=== PATIENT | female | born 1985 | race Caucasian/White ===

== ENCOUNTER 2016-12-07 13:27 | Observation (INO) ==
--- NOTE | 2016-12-07 15:10 | Emergency Department Note ---
Disposition Clinical Impression: Acute cholecystitis Disposition: Admitted As Inpatient Condition: Good Time of Disposition: 19:14 Abdominal Pain HPI - General Chief Complaint: ED Abdominal Pain Stated Complaint: gallbladder pain Time Seen by Provider: 12/07/16 15:04 Source: patient Mode of arrival: ambulatory Limitations: no limitations Nursing Notes Reviewed: Yes Vital Signs Reviewed: Yes - History of Present Illness HPI Narrative: 31-year-old female smoker presents with right upper quadrant pain. This all began 1900 last night. Describes a sharp stabbing sensation right upper quadrant. She has associated nausea vomiting. She was seen and evaluated at outside facility resave this was her gallbladder. Patient reports she was admitted to the hospital it was going to be transferred to [facility] for surgery. Prior to the transferred reportedly the surgeon was consulted and told the patient to follow up on Friday. Patient was subsequently sent home with a Vicodin antinausea medication. Patient has taken Vicodin without significant relief. She continues to be in pain. She denies any fever. She has a history of a section as well as a surgery to separate her ovaries. Patient denies any alcohol use. She is nauseated and has vomited 3 times today. She is only able to tolerate liquids at this time. She also reports burning with urination. She is currently on her menstrual period. Pt Subjective Complaint: abdominal pain Onset (ago): hour(s) Consistency: constant Location: RUQ Pain Severity: severe Pain Scale: 10 Quality: stabbing, sharp Radiation: none Migration to: no migration Improves with: nothing Worsens with: eating, movement Associated symptoms: Reports: nausea, vomiting, dysuria. Denies: hematemesis, hematochezia Treatments prior to arrival: prescription analgesics - Related Data LMP Date: 12/07/16 Home Medications Medication Instructions Recorded Confirmed Pregabalin [Lyrica] 300 mg PO BID 12/07/16 12/07/16 Allergies Allergy/AdvReac Type Severity Reaction Status Date / Time Sulfa (Sulfonamide Allergy Swelling Verified 04/24/15 23:06 Antibiotics) of Lip/Tongue/Throat Cyclobenzaprine AdvReac Shakiness Verified 04/24/15 23:06 [From Flexeril] tramadol [From Ultram] AdvReac Irritable Verified 04/24/15 23:06 All systems ED: reviewed and negative except as stated. Constitutional: Denies: fever, chills Cardiovascular: Denies: chest pain Respiratory: Denies: cough, dyspnea Gastrointestinal: Reports: abdominal pain, nausea, vomiting. Denies: diarrhea, melena, hematochezia Genitourinary: Reports: dysuria. Denies: urgency, frequency, hematuria, abnormal menses Musculoskeletal: Denies: back pain, neck pain Integumentary: Denies: rash, abrasion Neurological: Denies: headache Abdominal Pain PMH - Past Medical History Medical history: Reports: GERD Female Surgical History: Reports: non-contributory Psychiatric history: Reports: no psych history - Social History Smoking status: Current every day smoker Alcohol use: Reports: none Drug use: Reports: none Physical Exam - General Limitations: no limitations General appearance: alert, in no apparent distress Course Course Narrative: 31-year-old female presents with right upper quadrant pain. Ongoing for the past 24 hours. Reportedly has gallbladder inflammation and was discharge home yesterday. She has a follow-up appointment with a surgeon at [facility] on Friday. Patient presents with worsening pain. Patient is afebrile and otherwise appears uncomfortable. She was seen holding her right upper quadrant. But side ultrasound was performed but unable to visualize gallbladder due to patient compliance. Patient was very uncomfortable with a positive sonographic Ramos sign. Will get CBC, electrolytes, LFT. Also obtain right upper quadrant ultrasound to evaluate the pile system. Toradol and Zofran for symptoms. Patient is in agreement with this plan. - Reevaluation(s) Reevaluation #1: Mild leukocytosis 14. She has a large amount of blood in the urine consistent with menstrual period. Labs or otherwise unremarkable. Patient is resting comfortably in bed asleep. She appears in no acute distress. Ultrasound is pending. Time: 17:06 Reevaluation #2: Shari re-examination patients complaining of epigastric discomfort described as a burning sensation. She has a history of reflux. Ordered 20 mg of Pepcid. Patient is still awaiting ultrasound of the gallbladder. She is otherwise stable. Patient is signed out to Dr. Kaufman and Dr. Raymundo, nighttime physician for follow up with GB US and disposition. Time: 18:45 Vital Signs Temperature 98.1 F 12/07/16 13:46 Pulse Rate 97 12/07/16 13:46 Respiratory Rate 18 12/07/16 13:46 Blood Pressure 157/97 12/07/16 13:46 O2 Sat by Pulse Oximetry 98 12/07/16 13:46 Temperature 98.4 F 12/08/16 06:39 Pulse Rate 66 12/08/16 06:39 Respiratory Rate 18 12/08/16 06:39 Blood Pressure 129/81 12/08/16 06:39 O2 Sat by Pulse Oximetry 98 12/08/16 06:39 Oxygen Delivery Oxygen Delivery Room Air Abdominal Pain - Medical Records Medical records reviewed: Yes I reviewed the patient's medical records. - Lab Data Lab results reviewed: Yes I reviewed the patient's lab results. Result diagrams: 12/08/16 08:05 12/08/16 08:05 Lab Results 12/07/16 12/07/16 12/07/16 Range/Units 15:10 16:24 16:24 WBC 14.3 H (4.3-11.1) K/mcL RBC 4.29 (3.82-4.97) M/mcL Hgb 12.8 (11.5-15.4) g/dL Hct 38.9 (35.3-44.9) % MCV 90.7 (83.0-100.0) fL MCH 29.8 (28.0-33.3) pg MCHC 32.9 (31.6-35.5) g/dL RDW 12.5 (11.5-14.5) % Plt Count 256 (140-400) K/mcL MPV 11.0 (9.4-12.4) fL Immature Gran % 0.4 (0-4) % Seg Neutrophils % 77.8 % Lymphocytes % 15.2 % Monocytes % 5.8 % Eosinophils % 0.2 % Basophils % 0.6 % Neutrophils # 11.1 H (1.6-8.9) K/mcL Lymphocytes # 2.2 (0.6-4.6) K/mcL Monocytes # 0.8 (0.0-1.3) K/mcL Eosinophils # 0.0 (0.0-0.6) K/mcL Basophils # 0.1 (0.0-0.2) K/mcL Sodium 141 (136-145) mEq/L Potassium 4.5 (3.5-4.5) mEq/L Chloride 110 H (98-109) mEq/L Carbon Dioxide 23 (19-29) mEq/L BUN 11 (7-20) mg/dL Creatinine 0.73 (0.57-1.11) mg/dL Est GFR ( Amer) > 60 (> 60) Est GFR (Non-Af Amer) > 60 (> 60) BUN/Creatinine Ratio 15 (6-26) Glucose 124 H (70-99) mg/dL Calculated Osmolality 293 (280-300) Calcium 8.8 (8.6-10.8) mg/dL Total Bilirubin 0.5 (0.2-1.2) mg/dL Direct Bilirubin 0.2 (0.0-0.5) mg/dL Indirect Bilirubin 0.3 (0.0-1.2) mg/dL AST 28 (5-34) Units/L ALT 33 (0-55) Units/L Alkaline Phosphatase 95 (38-126) Units/L Serum Total Protein 6.1 (6.0-8.3) g/dL Albumin 3.4 L (3.5-5.0) g/dL Globulin 2.7 (2.4-3.5) g/dL Albumin/Globulin Ratio 1.3 (1.1-2.2) Lipase 36 (8-78) Units/L Serum , Qual (Negative) Urine Color Yellow (Yellow) Urine Clarity Clear (Clear) Urine pH 5.5 (5.0-8.0) pH Units Ur Specific [place] 1.025 (1.010-1.025) Urine Protein Negative (Neg-Trace) mg/dL Urine Glucose (UA) Normal (Normal) mg/dL Urine Ketones Negative (Negative) mg/dL Urine Blood Large H (Negative) Urine Nitrite Negative (Negative) Urine Bilirubin Negative (Negative) Urine Urobilinogen Normal (Normal) mg/dL Ur Leukocyte Esterase Small H (Negative) Urine Microscopic RBC 50-100 H (0-3) per hpf Urine Microscopic WBC 5-15 H (0-3) per hpf Ur Squamous Epith Cells Many H (None-Few) per lpf Urine Bacteria None Seen (None-Few) per hpf Hyaline Casts None Seen (None-Few) per lpf Ur Culture Indicated? YES A (NO) 12/07/16 Range/Units 16:24 WBC (4.3-11.1) K/mcL RBC (3.82-4.97) M/mcL Hgb (11.5-15.4) g/dL Hct (35.3-44.9) % MCV (83.0-100.0) fL MCH (28.0-33.3) pg MCHC (31.6-35.5) g/dL RDW (11.5-14.5) % Plt Count (140-400) K/mcL MPV (9.4-12.4) fL Immature Gran % (0-4) % Seg Neutrophils % % Lymphocytes % % Monocytes % % Eosinophils % % Basophils % % Neutrophils # (1.6-8.9) K/mcL Lymphocytes # (0.6-4.6) K/mcL Monocytes # (0.0-1.3) K/mcL Eosinophils # (0.0-0.6) K/mcL Basophils # (0.0-0.2) K/mcL Sodium (136-145) mEq/L Potassium (3.5-4.5) mEq/L Chloride (98-109) mEq/L Carbon Dioxide (19-29) mEq/L BUN (7-20) mg/dL Creatinine (0.57-1.11) mg/dL Est GFR ( Amer) (> 60) Est GFR (Non-Af Amer) (> 60) BUN/Creatinine Ratio (6-26) Glucose (70-99) mg/dL Calculated Osmolality (280-300) Calcium (8.6-10.8) mg/dL Total Bilirubin (0.2-1.2) mg/dL Direct Bilirubin (0.0-0.5) mg/dL Indirect Bilirubin (0.0-1.2) mg/dL AST (5-34) Units/L ALT (0-55) Units/L Alkaline Phosphatase (38-126) Units/L Serum Total Protein (6.0-8.3) g/dL Albumin (3.5-5.0) g/dL Globulin (2.4-3.5) g/dL Albumin/Globulin Ratio (1.1-2.2) Lipase (8-78) Units/L Serum , Qual Negative (Negative) Urine Color (Yellow) Urine Clarity (Clear) Urine pH (5.0-8.0) pH Units Ur Specific [place] (1.010-1.025) Urine Protein (Neg-Trace) mg/dL Urine Glucose (UA) (Normal) mg/dL Urine Ketones (Negative) mg/dL Urine Blood (Negative) Urine Nitrite (Negative) Urine Bilirubin (Negative) Urine Urobilinogen (Normal) mg/dL Ur Leukocyte Esterase (Negative) Urine Microscopic RBC (0-3) per hpf Urine Microscopic WBC (0-3) per hpf Ur Squamous Epith Cells (None-Few) per lpf Urine Bacteria (None-Few) per hpf Hyaline Casts (None-Few) per lpf Ur Culture Indicated? (NO) S.B.A.R. - S.B.A.R. Situation: Demographics, MOA Background: Presenting Complaint, Relevant PMH, Meds, & Allergies Assessment: Vital Signs, Course and respsone to treatment, Exam Concerns, Patient/Family Expectation, Pertinant Lab Results, Outstanding Labs Recommendation: Barrier(s) to disposition, Recommendation based on pending studies, treatments, or consults S.B.A.RBakari Report Given to: Dr. Kaufman and Zackary DodsonBViraj Repor Time: 19:00 Attestation Statement - Attestation Attestation: I personally interviewed and examined this patient and my medical decision- making was reviewed with the ED Resident Physician, Dr. Nugent I agree with the documented findings, disposition and treatment plan as described except to the extent set forth below. She is a 31-year-old white female who presents to the emergency room with recurrent right upper quadrant pain and nausea. Patient reports that she began with these symptoms 2 days ago and was evaluated last [facility]. Patient states that they wanted to admit her for gallbladder surgery then stated that she was later evaluated by the surgeon and told that she could be discharged home and did not need to come into the hospital. Patient has continued with right upper quadrant pain intermittently colicky in nature that radiates through to her back. Patient has not had any vomiting today but has had ongoing nausea. Patient's physical exam findings as documented. Currently patient's labs appear unremarkable overall in although urine shows some blood and leuks and patient is currently on her menses and this was a clean -catch urine. Patient has no urinary symptoms. At this time we are awaiting gallbladder ultrasound for further evaluation and final disposition. Patient was signed out to Dr. Raymundo in the national account executive team for follow-up on the [place] but her ultrasound results and final disposition. Patient is hemodynamically stable at time of sign out.
[2016-12-07] MEDS ORDERED: 0.9 % Sodium Chloride 1,000 ML IVC ONE (15:22)
[2016-12-07] MEDS ORDERED: Ondansetron 4 MG/2 ML VIAL IVP ONE ×2 (15:22→19:23)
[2016-12-07] MEDS ORDERED: Ketorolac 30 MG/ML VIAL IVP ONE (15:22)
[2016-12-07 15:44] LABS: Bilirubin,Urine Negative (Negative); Blood,Urine Large (Negative); Clarity,Urine Clear (Clear); Color,Urine Yellow (Yellow); Glucose,Urine (UA) Normal (Normal); Ketones,Urine Negative (Negative); Leukocyte Esterase,Urine Small (Negative); Nitrite,Urine Negative (Negative); PH,Urine 5.5 pH Units (5.0-8.0); Protein,Urine Negative (Neg-Trace); Specific Gravity,Urine 1.025 (1.010-1.025); Urobilinogen,Urine Normal (Normal)
[2016-12-07 15:46] LABS: Bacteria,Urine None Seen per hpf (None-Few); Hyaline Casts,Urine None Seen per lpf (None-Few); RBC,Urine 50-100 per hpf (0-3); Squamous Epithelial Cell,Urine Many per lpf (None-Few)
[2016-12-07 16:30] LABS: Basophils # 0.1 K/mcL (0.0-0.2); Basophils % 0.6 %; Eosinophils % 0.2 %; Hematocrit 38.9 % (35.3-44.9); Hemoglobin 12.8 g/dL (11.5-15.4); Immature Granulocytes % 0.4 % (0-4); Lymphocytes # 2.2 K/mcL (0.6-4.6); Lymphocytes % 15.2 %; Mean Corpuscular HGB Conc 32.9 g/dL (31.6-35.5); Mean Corpuscular Hemoglobin 29.8 pg (28.0-33.3); Mean Corpuscular Volume 90.7 fL (83.0-100.0); Monocytes # 0.8 K/mcL (0.0-1.3); Monocytes % 5.8 %; Neutrophils # 11.1 K/mcL (1.6-8.9); Platelet Count 256 K/mcL (140-400); Red Blood Count 4.29 M/mcL (3.82-4.97); Red Cell Distribution Width 12.5 % (11.5-14.5); Segmented Neutrophils % 77.8 %
[2016-12-07 16:47] LABS: Alanine Aminotransferase 33 Units/L (0-55); Albumin 3.4 g/dL (3.5-5.0); Albumin/Globulin Ratio 1.3 (1.1-2.2); Alkaline Phosphatase 95 Units/L (38-126); Aspartate Amino Transferase 28 Units/L (5-34); BUN/Creatinine Ratio 15 (6-26); Bilirubin,Direct 0.2 mg/dL (0.0-0.5); Bilirubin,Indirect 0.3 mg/dL (0.0-1.2); Bilirubin,Total 0.5 mg/dL (0.2-1.2); Blood Urea Nitrogen 11 mg/dL (7-20); Calcium 8.8 mg/dL (8.6-10.8); Carbon Dioxide 23 mEq/L (19-29); Chloride 110 mEq/L (98-109); Globulin 2.7 g/dL (2.4-3.5); Glucose 124 mg/dL (70-99); Lipase 36 Units/L (8-78); Osmolality,Calculated 293 (280-300); Potassium 4.5 mEq/L (3.5-4.5); Sodium 141 mEq/L (136-145); Total Protein 6.1 g/dL (6.0-8.3); eGFR For African Americans > 60 (> 60); eGFR For Non-African Americans > 60 (> 60)
[2016-12-07] MEDS: Famotidine 20 MG/2 ML VIAL IVP ONE ×2 (18:50→19:15)
[2016-12-07] MEDS ORDERED: *HR* HYDROmorphone (PF) 1 MG/ML SYRINGE IVP ONE ×2 (19:23→20:20)
--- NOTE | 2016-12-07 19:54 | Emergency Department Note ---
Disposition Clinical Impression: Acute cholecystitis Disposition: Admitted As Inpatient Condition: Good Abdominal Pain HPI - General Chief Complaint: ED Abdominal Pain Stated Complaint: gallbladder pain Time Seen by Provider: 12/07/16 15:04 Source: patient Mode of arrival: ambulatory Nursing Notes Reviewed: Yes Vital Signs Reviewed: Yes - History of Present Illness Pt Subjective Complaint: abdominal pain Location: RUQ Pain Severity: severe Pain Scale: 10 Quality: stabbing, sharp Migration to: no migration Improves with: nothing Worsens with: eating, movement Associated symptoms: Reports: nausea, vomiting, dysuria. Denies: hematemesis, hematochezia - Related Data Previous Rx's Medication Instructions Recorded Furosemide [Lasix] 20 mg PO DAILY #7 tablet 04/25/15 Allergies Allergy/AdvReac Type Severity Reaction Status Date / Time Sulfa (Sulfonamide Allergy Swelling Verified 04/24/15 23:06 Antibiotics) of Lip/Tongue/Throat Cyclobenzaprine AdvReac Shakiness Verified 04/24/15 23:06 [From Flexeril] tramadol [From Ultram] AdvReac Irritable Verified 04/24/15 23:06 Constitutional: Denies: fever, chills Cardiovascular: Denies: chest pain Respiratory: Denies: cough, dyspnea Gastrointestinal: Reports: abdominal pain, nausea, vomiting. Denies: diarrhea, melena, hematochezia Genitourinary: Reports: dysuria. Denies: urgency, frequency, hematuria, abnormal menses Musculoskeletal: Denies: back pain, neck pain Integumentary: Denies: rash, abrasion Neurological: Denies: headache Abdominal Pain PMH - Past Medical History Medical history: Reports: GERD Female Surgical History: Reports: non-contributory Psychiatric history: Reports: no psych history - Social History Smoking status: Current every day smoker Alcohol use: Reports: none Drug use: Reports: none Physical Exam - General Limitations: no limitations General appearance: alert, in no apparent distress Course Course Narrative: Patient taken over at signout from Dr. Nugent. Patient has a history of sudden onset abdominal pain happened yesterday. Said outside facility and given antibiotics and antiemetics. Worsening abdominal pain with her here for reevaluation which shows an ultrasound consistent with acute cholecystitis with pericholecystic fluid as well as positive sonographic Ramos sign. Gallbladder wall is thickened with concern for a gallstone within the bladder duct. Patient 's pain is controlled at this time. - Consultations Consultation #1: Discussed with Dr. Enriquez. Patient accepted for admission. 1954 Vital Signs Temperature 98.1 F 12/07/16 13:46 Pulse Rate 97 12/07/16 13:46 Respiratory Rate 18 12/07/16 13:46 Blood Pressure 157/97 12/07/16 13:46 O2 Sat by Pulse Oximetry 98 12/07/16 13:46 Temperature 98.1 F 12/07/16 13:46 Pulse Rate 47 12/07/16 19:35 Respiratory Rate 18 12/07/16 19:35 Blood Pressure 126/74 12/07/16 19:35 O2 Sat by Pulse Oximetry 98 12/07/16 19:35 Oxygen Delivery Oxygen Delivery Room Air Abdominal Pain - Lab Data Result diagrams: 12/07/16 16:24 12/07/16 16:24 Lab Results 12/07/16 12/07/16 12/07/16 Range/Units 15:10 16:24 16:24 WBC 14.3 H (4.3-11.1) K/mcL RBC 4.29 (3.82-4.97) M/mcL Hgb 12.8 (11.5-15.4) g/dL Hct 38.9 (35.3-44.9) % MCV 90.7 (83.0-100.0) fL MCH 29.8 (28.0-33.3) pg MCHC 32.9 (31.6-35.5) g/dL RDW 12.5 (11.5-14.5) % Plt Count 256 (140-400) K/mcL MPV 11.0 (9.4-12.4) fL Immature Gran % 0.4 (0-4) % Seg Neutrophils % 77.8 % Lymphocytes % 15.2 % Monocytes % 5.8 % Eosinophils % 0.2 % Basophils % 0.6 % Neutrophils # 11.1 H (1.6-8.9) K/mcL Lymphocytes # 2.2 (0.6-4.6) K/mcL Monocytes # 0.8 (0.0-1.3) K/mcL Eosinophils # 0.0 (0.0-0.6) K/mcL Basophils # 0.1 (0.0-0.2) K/mcL Sodium 141 (136-145) mEq/L Potassium 4.5 (3.5-4.5) mEq/L Chloride 110 H (98-109) mEq/L Carbon Dioxide 23 (19-29) mEq/L BUN 11 (7-20) mg/dL Creatinine 0.73 (0.57-1.11) mg/dL Est GFR ( Amer) > 60 (> 60) Est GFR (Non-Af Amer) > 60 (> 60) BUN/Creatinine Ratio 15 (6-26) Glucose 124 H (70-99) mg/dL Calculated Osmolality 293 (280-300) Calcium 8.8 (8.6-10.8) mg/dL Total Bilirubin 0.5 (0.2-1.2) mg/dL Direct Bilirubin 0.2 (0.0-0.5) mg/dL Indirect Bilirubin 0.3 (0.0-1.2) mg/dL AST 28 (5-34) Units/L ALT 33 (0-55) Units/L Alkaline Phosphatase 95 (38-126) Units/L Serum Total Protein 6.1 (6.0-8.3) g/dL Albumin 3.4 L (3.5-5.0) g/dL Globulin 2.7 (2.4-3.5) g/dL Albumin/Globulin Ratio 1.3 (1.1-2.2) Lipase 36 (8-78) Units/L Urine Color Yellow (Yellow) Urine Clarity Clear (Clear) Urine pH 5.5 (5.0-8.0) pH Units Ur Specific [place] 1.025 (1.010-1.025) Urine Protein Negative (Neg-Trace) mg/dL Urine Glucose (UA) Normal (Normal) mg/dL Urine Ketones Negative (Negative) mg/dL Urine Blood Large H (Negative) Urine Nitrite Negative (Negative) Urine Bilirubin Negative (Negative) Urine Urobilinogen Normal (Normal) mg/dL Ur Leukocyte Esterase Small H (Negative) Urine Microscopic RBC 50-100 H (0-3) per hpf Urine Microscopic WBC 5-15 H (0-3) per hpf Ur Squamous Epith Cells Many H (None-Few) per lpf Urine Bacteria None Seen (None-Few) per hpf Hyaline Casts None Seen (None-Few) per lpf Ur Culture Indicated? YES A (NO) Attestation Statement - Attestation Attestation: I, Derik Raymundo MD, personally evaluated this patient and discussed their management with the resident physician. I reviewed the resident's note and agree with the documented findings, medical decision making, and plan of care. This patient was signed out at shift change from Dr. Regine Hart and Dr. Nugent. Please refer to their notes for complete details of history and physical examination. At shift change patient awaiting gallbladder ultrasound results. On examination patient is a well-developed well-nourished female in no acute distress but does appear to be in moderate discomfort. She is alert and oriented 3. There is no cyanosis or diaphoresis. Breath sounds are clear and equal bilaterally. Heart is irregular with a mild bradycardia. Abdomen is soft with moderate right upper quadrant tenderness with guarding. No rebound tenderness. Normal bowel sounds. Labs reviewed. Leukocytosis noted. Gallbladder ultrasound consistent with acute cholecystitis. Surgeon professional soccer player, Dr. Enriquez, was consulted and accepted admission of the patient.
[2016-12-07] MEDS ORDERED: *HR* HYDROmorphone (PF) 1 MG/ML SYRINGE ONE (20:29)
[2016-12-07] MEDS ORDERED: Ondansetron 4 MG/2 ML VIAL IVP PRN (22:08)
[2016-12-07] MEDS ORDERED: *HR* Promethazine 25 MG/ML VIAL IVP PRN (22:09)
[2016-12-07] MEDS: *HR* HYDROmorphone (PF) 1 MG/ML SYRINGE IVP PRN (22:28)
[2016-12-07] MEDS: Piperacillin/Tazobactam 3.375 GM in D5% in Water (Mini-Bag+) 100 ML IVPB SCH (22:28)
[2016-12-07] MEDS: 0.9 % Sodium Chloride 1,000 ML IVC SCH (22:28)
[2016-12-08] MEDS: *HR* HYDROmorphone (PF) 1 MG/ML SYRINGE IVP PRN ×8 (00:49→21:42)
[2016-12-08] MEDS ORDERED: *HR* Metoprolol 5 MG/5 ML VIAL IVP PRN ×2 (07:33→13:23)
[2016-12-08] MEDS ORDERED: Naloxone 0.4 MG/ML INJ IVP PRN ×2 (07:33→13:23)
[2016-12-08] MEDS: Piperacillin/Tazobactam 3.375 GM in D5% in Water (Mini-Bag+) 100 ML IVPB SCH ×3 (08:17→22:28)
[2016-12-08] MEDS: 0.9 % Sodium Chloride 1,000 ML IVC SCH ×2 (08:17→16:22)
[2016-12-08 08:19] LABS: Basophils # 0.1 K/mcL (0.0-0.2); Basophils % 0.4 %; Eosinophils # 0.1 K/mcL (0.0-0.6); Eosinophils % 0.6 %; Hematocrit 38.4 % (35.3-44.9); Hemoglobin 12.8 g/dL (11.5-15.4); Immature Granulocytes % 0.4 % (0-4); Lymphocytes # 2.1 K/mcL (0.6-4.6); Lymphocytes % 16.1 %; Mean Corpuscular HGB Conc 33.3 g/dL (31.6-35.5); Mean Corpuscular Hemoglobin 30.3 pg (28.0-33.3); Mean Platelet Volume 11.3 fL (9.4-12.4); Monocytes % 7.6 %; Neutrophils # 9.9 K/mcL (1.6-8.9); Platelet Count 244 K/mcL (140-400); Red Blood Count 4.22 M/mcL (3.82-4.97); Red Cell Distribution Width 12.7 % (11.5-14.5); Segmented Neutrophils % 74.9 %
[2016-12-08 08:31] LABS: Alanine Aminotransferase 35 Units/L (0-55); Albumin 3.2 g/dL (3.5-5.0); Albumin/Globulin Ratio 1.1 (1.1-2.2); Alkaline Phosphatase 92 Units/L (38-126); Aspartate Amino Transferase 24 Units/L (5-34); BUN/Creatinine Ratio 14 (6-26); Bilirubin,Direct 0.3 mg/dL (0.0-0.5); Bilirubin,Indirect 0.3 mg/dL (0.0-1.2); Bilirubin,Total 0.6 mg/dL (0.2-1.2); Blood Urea Nitrogen 10 mg/dL (7-20); Calcium 8.7 mg/dL (8.6-10.8); Carbon Dioxide 24 mEq/L (19-29); Chloride 108 mEq/L (98-109); Globulin 2.8 g/dL (2.4-3.5); Glucose 130 mg/dL (70-99); Osmolality,Calculated 291 (280-300); Potassium 3.9 mEq/L (3.5-4.5); Sodium 140 mEq/L (136-145); eGFR For African Americans > 60 (> 60); eGFR For Non-African Americans > 60 (> 60)
[2016-12-08] MEDS ORDERED: Pantoprazole 40 MG VIAL IVP SCH (09:00)
[2016-12-08] MEDS ORDERED: *HR* Succinylcholine 200 MG/10 ML VIAL IVP ONE (09:16)
[2016-12-08] MEDS ORDERED: *HR* Rocuronium Bromide 50 MG/5 ML VIAL ONE (09:16)
[2016-12-08] MEDS ORDERED: *HR* Midazolam HCl 2 MG/2 ML VIAL ONE (09:16)
[2016-12-08] MEDS ORDERED: *HR* Propofol 200 MG/20 ML VIAL IVP ONE (09:16)
[2016-12-08] MEDS ORDERED: *HR* FentaNYL (PF) 100 MCG/2 ML VIAL ONE (09:16)
[2016-12-08] MEDS ORDERED: Lidocaine -MPF 2% 2 ML VIAL ONE (09:16)
--- NOTE | 2016-12-08 09:31 | General Surg History&Physical ---
Date of Encounter: 12/08/16 Time of Encounter: 07:30 Assessment and Plan (1) Leukocytosis Current Visit: Yes Status: Acute The assessment and plan as outlined above was discussed with the patient and/or family members who expressed understanding and agreement. All questions were answered. start cefoxitin q8hr Qualifiers: Leukocytosis type: unspecified Qualified Code(s): D72.829 - Elevated white blood cell count, unspecified (2) Nausea & vomiting Current Visit: Yes Status: Acute The assessment and plan as outlined above was discussed with the patient and/or family members who expressed understanding and agreement. All questions were answered. prn antiemetics Qualifiers: Vomiting type: unspecified Vomiting Intractability: non-intractable Qualified Code(s): R11.2 - Nausea with vomiting, unspecified (3) Acute cholecystitis Current Visit: Yes Status: Acute The assessment and plan as outlined above was discussed with the patient and/or family members who expressed understanding and agreement. All questions were answered. patient with acute cholecystitis. US and labs discussed wiht patient. Will plan laparoscopic cholecystectomy, possible cholangiograms possible open, risks and benefits discussed and she wishes to proceed. npo ivfh prn pain control abx prn antiemtic gi/dvt prophylaxis History of Present Illness Chief complaint: abdominal pain, N/V HPI: Ms. New is a 31 year old female who this past Friday night (2 nights ago) began having sharp RUQ pain which radiated to her back and shoulder. She had nausea and vomiting as well. She went to [facility] and had an US of her gallbladder and labs and was told it was her gallbladder and was discharged home with antibiotics. The pain continued to increase in severity and she presented to [place] ER last night. US of gallbladder was done showing stones, wall thickening and pericholecystic fluid. Wbc elevated at 14.3 and normal LFT' s. She denies diarrhea. No previous episodes like this. No fever chills and night sweats. Past Med Surg Social Fam HX - Past Medical History Source: patient Medical history: GERD, other (sciatica) Psychiatric history: no psych history - Past Surgical History Surgical History: (x3), other (laparoscopic lysis of adhesions) - Social History Smoking Status: Current every day smoker Packs per day: 1 Smokeless Tobacco Status: No Alcohol use: none Drug use: none Current living situation: Home - Independent - Family History Grandmother History Unknown: Yes Medications and Allergies Pregabalin [Lyrica] 300 mg PO BID 12/07/16 [History] Allergies Sulfa (Sulfonamide Antibiotics) Allergy (Verified 04/24/15 23:06) Swelling of Lip/Tongue/Throat Cyclobenzaprine [From Flexeril] Adverse Reaction (Verified 04/24/15 23:06) Shakiness tramadol [From Ultram] Adverse Reaction (Verified 04/24/15 23:06) Irritable Review of Systems All systems PM: reviewed and no additional remarkable complaints except as stated All systems PM: A 10-system review of systems was performed and is negative for pertinent findings except as documented above in the HPI. General Surgery Exam Initial Vital Signs Temp Pulse Resp BP Pulse Ox 98.1 F 97 18 157/97 98 12/07/16 13:46 12/07/16 13:46 12/07/16 13:46 12/07/16 13:46 12/07/16 13:46 - General physical appearance well nourished, no distress, no pain, moderate pain - Eyes PERRL, normal ocular movement - ENT normal mucosa, normocephalic - Neck trachea midline - Respiratory normal respiratory effort, clear to auscultation - Cardiovascular Cardiovascular exam: Present: RRR, no murmurs/rubs/gallops - Abdomen Abdomen general surgery: Present: bowel sounds present, soft, tender. Absent: distended, guarding, rebound, rigid Abdominal Tenderness: Present: RUQ - Integumentary Integumentary general surgery: Present: warm and dry, no abnormal pigmentation. Absent: diaphoresis - Neurologic Present: CN 2-12 grossly intact - Musculoskeletal Present: normal gait, normal posture - Psychiatric Psychiatric general surgery: Present: A&Ox3, speech is normal Results - Labs 12/08/16 08:05 12/08/16 08:05 Vital Signs Temp Pulse Resp BP Pulse Ox 12/08/16 06:39 98.4 F 66 18 129/81 98 12/08/16 03:10 98.3 F 57 13 136/87 98 12/07/16 21:20 97.9 F 47 14 150/99 99 12/07/16 19:35 47 18 126/74 98 12/07/16 17:35 84 18 131/70 96 06/24/17 13:46 98.1 F 97 18 157/97 98 Intake and Output 12/07/16 12/08/16 12/08/16 23:59 07:59 15:59 Intake Total 1000 / 1000 767 / 767 333 / 333 Output Total 300 / 300 Balance 1000 / 1000 467 / 467 333 / 333 Intake: IV Fluids 1000 / 1000 767 / 767 333 / 333 0.9 % Sodium Chloride 1, 1000 / 1000 667 / 667 333 / 333 000 ML @ 125 mls/hr IVC . Q8H GOYO Rx#:[id number] Zosyn 3.375 GM In 100 / 100 Dextrose 5% (Minibag+) 100 ML 100 ML @ 25 mls/hr IVPB Q8H GOYO Rx#: [id number] Oral 0 / 0 Output: Urine 300 / 300 Other: # Voids 1 Weight 87.317 kg 87.453 kg Blood Glucose* 124 127 Patient Weight 12/08/16 23:59 Weight 87.453 kg Short CBC 12/08/16 12/07/16 Range/Units 08:05 16:24 WBC 13.2 H 14.3 H (4.3-11.1) K/mcL Hgb 12.8 12.8 (11.5-15.4) g/dL Hct 38.4 38.9 (35.3-44.9) % Plt Count 244 256 (140-400) K/mcL Neutrophils # 9.9 H 11.1 H (1.6-8.9) K/mcL BMP 12/08/16 12/07/16 Range/Units 08:05 16:24 Sodium 140 141 (136-145) mEq/L Potassium 3.9 4.5 (3.5-4.5) mEq/L Chloride 108 110 H (98-109) mEq/L Carbon Dioxide 24 23 (19-29) mEq/L BUN 10 11 (7-20) mg/dL Creatinine 0.73 0.73 (0.57-1.11) mg/dL Glucose 130 H 124 H (70-99) mg/dL Calcium 8.7 8.8 (8.6-10.8) mg/dL Liver Function 12/08/16 12/07/16 Range/Units 08:05 16:24 Total Bilirubin 0.6 0.5 (0.2-1.2) mg/dL Direct Bilirubin 0.3 0.2 (0.0-0.5) mg/dL AST 24 28 (5-34) Units/L ALT 35 33 (0-55) Units/L Alkaline Phosphatase 92 95 (38-126) Units/L Albumin 3.2 L 3.4 L (3.5-5.0) g/dL Urine //17 Range/Units 15:10 Urine Color Yellow (Yellow) Urine Clarity Clear (Clear) Urine pH 5.5 (5.0-8.0) pH Units Ur Specific [place] 1.025 (1.010-1.025) Urine Protein Negative (Neg-Trace) mg/dL Urine Glucose (UA) Normal (Normal) mg/dL - Imaging US - abdomen: report reviewed
[2016-12-08] MEDS ORDERED: Albuterol 2.5 MG/3 ML NEBULIZER IH ONE (09:42)
[2016-12-08] MEDS ORDERED: Albuterol 2.5 MG/3 ML NEBULIZER ONE (09:44)
--- NOTE | 2016-12-08 09:52 | Anesthesia Evaluation PreOp ---
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 Any Significant HX Other Medical History: GERD Anesthesia History: No Prior Anesthetic Complications, Past Anesthesia Test: Negative (12/08/2016) Alcohol Use: none Drug use: none Medications and Allergies Pregabalin [Lyrica] 300 mg PO BID 12/07/16 [History] Allergies Sulfa (Sulfonamide Antibiotics) Allergy (Verified 04/24/15 23:06) Swelling of Lip/Tongue/Throat Cyclobenzaprine [From Flexeril] Adverse Reaction (Verified 04/24/15 23:06) Shakiness tramadol [From Ultram] Adverse Reaction (Verified 04/24/15 23:06) Irritable - Meds/Allergy Pre-op Review Medications Reviewed: Yes Allergies Reviewed: Yes Beta Blockers on Current Med List: No Anesthesia Results - Labs 12/08/16 08:05 12/08/16 08:05 Anesthesia Exam Vital Signs/O2 Sat, Most Current Temp Pulse Resp BP Pulse Ox 98.4 F 66 18 129/81 98 12/08/16 06:39 12/08/16 06:39 12/08/16 06:39 12/08/16 06:39 12/08/16 06:39 Height: 5'5''/1.65 m Weight: 192 lbs/87.453 kg NPO (# of Hours): 8 Pain Scale: 6 (abdomen) Pain Scale Used: Numeric (1 - 10) - HEENT Pupil (Motor): EOMI Mallampati: II Teeth: Normal (chipped lower teeth) Oral Opening: Greater than 3 - PRODUCT SAFETY TEST ENGINEER LOC: Oriented PRODUCT SAFETY TEST ENGINEER Motor: Normal RUE, Normal LUE, Normal RLE, Normal LLE, Normal Face PRODUCT SAFETY TEST ENGINEER Sensory: Normal: RUE, LUE, RLE, LLE, Face - Cardiac Rhythm: Regular Murmur: None - Pulmonary Breath Sounds: bilateral Clear Respiratory Effort: Symmetrical Anesthesia Assess/Plan ASA Score: 2 Modified Claudio Scale for Level of Consciousness: Cooperative, oriented, and tranquil Anesthetic Plan: General Monitoring Plan: Standard Monitors Recovery Plan: PACU
[2016-12-08] MEDS ORDERED: *HR* Promethazine 25 MG/ML VIAL IVP PRN ×2 (09:59→13:23)
[2016-12-08] MEDS ORDERED: Ondansetron 4 MG/2 ML VIAL IVP ONE (09:59)
[2016-12-08] MEDS ORDERED: Neostigmine Methylsulfate 3 MG/3 ML SYRINGE ONE (10:39)
[2016-12-08] MEDS ORDERED: Ondansetron 4 MG/2 ML VIAL ONE (10:39)
[2016-12-08] MEDS ORDERED: Dexamethasone 4 MG/ML VIAL ONE (10:39)
[2016-12-08] MEDS ORDERED: *HR* HYDROmorphone 2 MG/ML SYRINGE ONE (10:45)
--- NOTE | 2016-12-08 11:58 | Operative Note ---
Date of procedure: 12/08/16 Pre-op diagnosis: Symptomatic cholelithiasis Post-op diagnosis: other (Acute cholecystitis) Procedure: Laparoscopic cholecystectomy Complications: none immediate Anesthesia: GETA, local Local Anesthetics: 0.5% Sensorcaine HCL SubQ (cc) (30) Surgeon: Lin Enriquez Aws Developer: Jessica Gu Estimated blood loss (cc): 30 Specimen: gallbladder and contents Condition: stable Disposition: PACU Procedure in Detail: The patient was brought into the operating suite and placed supine on the operating table. Sign-in was performed and everyone was in agreement. Anesthesia was induced and patient was endotracheally intubated by anesthesia without incident and they also placed an OG tube. The abdomen was prepped and draped in the usual sterile fashion. A timeout was performed again everyone was in agreement. A supraumbilical incision was made through the skin into the subcutaneous tissue with an 11 blade. Towel clamps were placed on either side of the umbilicus for retraction. S retractors were used to dissect down to the anterior abdominal wall linea alba fascia. A Veress needle was placed through this incision and a water drop test confirmed placement and the abdomen was insufflated. The abdomen was entered with a 5 mm 0 degree laparoscope on a 5 mm X-lesley trocar. The area and entry was visualized was no bleeding and no apparent bowel injury. A 5 mm subxiphoid port was placed under direct visualization after first incising the skin with an 11 blade. A right upper quadrant subcostal position midclavicular line 5 mm port was placed under direct visualization after first incising skin with 11 blade. The laparoscope was placed in this and we exchanged the supraumbilical port for a 12 mm port under direct visualization. The last 5 mm port was placed in the right upper quadrant subcostal position anterior axillary line after first incising the skin with an 11 blade. The patient was placed in steep reverse Trendelenburg left side down position. The gallbladder was significantly firm and we aspirated about 30 mL of bile with the laparoscopic aspirator to be able to grab the gallbladder. The dome of the gallbladder was grasped and retracted cephalad. Omental adhesions to the body and infundibulum of the gallbladder were taken down bluntly with the [place] and suction. The infundibulum was grasped and retracted laterally which was very difficult to grab due to the thickness of the tissue. Using the [place] we dissected out the cystic duct and cystic artery. Three 5 mm hemoclips were placed distally on the cystic duct one proximally and it was transected with curved scissors. The cystic artery was doubly clipped proximally, once distally and transected with curved scissors. The gallbladder was removed off the cystic plate with the Bovie. This took a significant amount of time due to the thickness of the tissue and the inflammation present. Any bleeding points were stopped with the Bovie. There was some bleeding at the liver bed which was stopped with the Bovie and using Surgicel, large sheet. The gallbladder was placed in a laparoscopic Endo Catch bag and removed via the supraumbilical incision site which had to be opened several centimeters in length to be able to remove the gallbladder. The inferior edge of the liver was bluntly retracted cephalad and the cystic plate was copiously irrigated with sterile saline. There was no bleeding or apparent bile leak from the cystic plate and the clips on the cystic artery and duct were intact. All irrigation was suctioned free from the abdomen and the Surgicel was removed. All insufflation was suctioned free from the abdomen and the ports removed. The abdominal wall at the supraumbilical incision site was closed with 2 #1 non-looped PDS stitches running meeting in the middle. 30 mL of 0.5% Marcaine was injected subcutaneously at the 4 port sites. The skin at the three 5 mm port sites were closed with 4-0 Monocryl interrupted subcuticular stitches. The skin at the supraumbilical incision site was closed with a 4-0 Monocryl running subcuticular stitch. Steri-Strips were applied to all wounds. The patient was awoken in the operating suite having tolerated the procedure well and were taken to PACU in stable condition after all lap and ensuring counts were correct at the end of the case.
--- NOTE | 2016-12-08 12:03 | Discharge Summary ---
Date of Encounter: 12/09/16 Time of Encounter: 13:00 - Discharge Diagnosis (1) Leukocytosis Priority: Secondary Status: Acute Qualifiers: Leukocytosis type: unspecified Qualified Code(s): D72.829 - Elevated white blood cell count, unspecified (2) Nausea & vomiting Priority: Secondary Status: Acute Qualifiers: Vomiting type: unspecified Vomiting Intractability: non-intractable Qualified Code(s): R11.2 - Nausea with vomiting, unspecified (3) Acute cholecystitis Priority: Primary Status: Acute - Discharge Medications Home Medications: Pregabalin [Lyrica] 300 mg PO BID 12/07/16 [History] Ciprofloxacin HCl [Cipro] 500 mg PO BID 12/08/16 [History] Ibuprofen [Motrin] 800 mg PO Q8HR PRN 12/08/16 [History] Ondansetron ODT [Zofran ODT] 4 mg PO Q4H PRN 12/08/16 [History] Suboxone 8mg-2mg Tab 1 tab PO BID 12/08/16 [History] metroNIDAZOLE [Flagyl] 500 mg PO BID 12/08/16 [History] Allergies/Adverse Reactions: Allergies Sulfa (Sulfonamide Antibiotics) Allergy (Verified 04/24/15 23:06) Swelling of Lip/Tongue/Throat Cyclobenzaprine [From Flexeril] Adverse Reaction (Verified 04/24/15 23:06) Shakiness tramadol [From Ultram] Adverse Reaction (Verified 04/24/15 23:06) Irritable General Surgery Exam Initial Vital Signs Temp Pulse Resp BP Pulse Ox 98.1 F 97 18 157/97 98 12/07/16 13:46 12/07/16 13:46 12/07/16 13:46 12/07/16 13:46 12/07/16 13:46 - General physical appearance well nourished, no distress, moderate pain - Eyes PERRL, normal ocular movement - ENT normal mucosa, normocephalic - Respiratory normal expansion, clear to auscultation - Cardiovascular Cardiovascular exam: Present: RRR - Abdomen Abdomen general surgery: Present: bowel sounds present, soft, tender ( appropriate post op tenderness) - Incision Incision: Present: clean and dry, intact - Integumentary Integumentary general surgery: Present: warm and dry, no abnormal pigmentation. Absent: diaphoresis - Neurologic Present: CN 2-12 grossly intact - Musculoskeletal Present: normal gait, normal posture - Psychiatric Psychiatric general surgery: Present: A&Ox3, speech is normal Date of admission: 12/07/16 20:05 Primary care physician: Bhavani Sneed Consults: 12/07/16 22:44 Consult to Nutrition [CONS] Routine Comment: patient lost 30 lbs Consulting Provider: NUTRITION Reason for Dietary Consult: MST Score Discharging clinician: Lin Enriquez Anticipated date of discharge: 12/09/16 - Patient Status Disposition: Home, Self-Care Condition: Good Overall status at discharge: patient is progressing back to baseline - Discharge Instructions Instructions: Laparoscopic Cholecystectomy (DC) Follow Up With: Bhavani Sneed [Primary Care Provider] - Lin Enriquez MD [Partnered Physician] - (or Jennifer Maddox in 2 weeks for post op check) Additional Instructions: No lifting more than 20 pounds for 6 weeks. Okay to take a shower in 24 hours. No tub baths or pools for 1 week. Okay to ride in the car wearing a seatbelt and climb steps. No driving until off narcotics for 24 hours and able to react safely Remove Steri-Strips in 1 week Do not take pain medicine/narcotics on an empty stomach it will likely cause nausea and possibly vomiting. If pain medication is too strong okay to break in half - Diet and Activity Activity: increase activity as tolerated (No lifting more than 20 pounds for 2 weeks) Diet: low fat, low cholesterol - Hospital Course Hospital course: Ms. New is a 31 year old female who came into the ER with right upper quadrant abdominal pain, nausea, vomiting. Ultrasound of the gallbladder showed 1.4 cm gallbladder wall thickening, pericholecystic fluid, and cholelithiasis, white blood cell count was elevated, LFTs were normal. She was admitted to the hospital, made nothing by mouth, IV fluid hydration was started. She was started on Zosyn antibiotics. She was taken to the operating room on December 08 for a laparoscopic cholecystectomy. Postoperatively she was started on IV when necessary pain control and transitioned to by mouth P [place] was started on a clear liquid diet and advance to regular she tolerated. She was discharged home in stable condition, tolerating a diet, having appropriate bowel and bladder function. - Time Spent with Patient Total time spent providing and/or coordinating discharge services: Labs on day of discharge: Labs from last 24 hours 12/08/16 12/08/16 08:05 08:05 WBC 13.2 H RBC 4.22 Hgb 12.8 Hct 38.4 MCV 91.0 MCH 30.3 MCHC 33.3 RDW 12.7 Plt Count 244 MPV 11.3 Immature Gran % 0.4 Seg Neutrophils % 74.9 Lymphocytes % 16.1 Monocytes % 7.6 Eosinophils % 0.6 Basophils % 0.4 Neutrophils # 9.9 H Lymphocytes # 2.1 Monocytes # 1.0 Eosinophils # 0.1 Basophils # 0.1 Sodium 140 Potassium 3.9 Chloride 108 Carbon Dioxide 24 BUN 10 Creatinine 0.73 Est GFR ( Amer) > 60 Est GFR (Non-Af Amer) > 60 BUN/Creatinine Ratio 14 Glucose 130 H Calculated Osmolality 291 Calcium 8.7 Total Bilirubin 0.6 Direct Bilirubin 0.3 Indirect Bilirubin 0.3 AST 24 ALT 35 Alkaline Phosphatase 92 Serum Total Protein 6.0 Albumin 3.2 L Globulin 2.8 Albumin/Globulin Ratio 1.1
[2016-12-08] MEDS ORDERED: Ondansetron 4 MG/2 ML VIAL IVP PRN (13:23)
--- NOTE | 2016-12-08 13:32 | Anesthesia Evaluation Post Op ---
Date of Encounter: 12/08/16 Time of Encounter: 13:00 - Vital Signs Vital Signs: Vital Signs/O2 Sat, Most Current Temp Pulse Resp BP Pulse Ox 99.7 F H 49 16 141/86 97 12/08/16 12:51 12/08/16 12:51 12/08/16 12:51 12/08/16 12:51 12/08/16 12:51 - Lungs Lungs: Clear Ascult./Percussion - Airway Airway: Non-obstructed - Cardiovascular Regular Rate - Mental Status Mental Status: Asleep with brisk response to light stimulation - Pain Pain Scale: 4 Pain Scale used: Numeric (1 - 10) - Nausea Vomiting Nausea Vomiting: Not Present - Hydration Hydration: NPO, Has not voided - Discharge PostOp Status: Transfer Patient to floor
[2016-12-08] MEDS: *HR* OxyCODONE/APAP 5/325 TABLET PO PRN ×2 (16:08→22:28)
[2016-12-08] MEDS: Pregabalin 75 MG CAPSULE PO SCH (19:22)
[2016-12-09] MEDS: *HR* HYDROmorphone (PF) 1 MG/ML SYRINGE IVP PRN ×3 (02:51→13:06)
[2016-12-09] MEDS: 0.9 % Sodium Chloride 1,000 ML IVC SCH (03:59)
[2016-12-09] MEDS: *HR* OxyCODONE/APAP 5/325 TABLET PO PRN ×2 (05:26→11:03)
[2016-12-09 05:40] LABS: Basophils # 0.1 K/mcL (0.0-0.2); Basophils % 0.7 %; Eosinophils # 0.2 K/mcL (0.0-0.6); Eosinophils % 1.5 %; Hematocrit 34.2 % (35.3-44.9); Hemoglobin 11.4 g/dL (11.5-15.4); Immature Granulocytes % 0.3 % (0-4); Lymphocytes # 3.8 K/mcL (0.6-4.6); Mean Corpuscular HGB Conc 33.3 g/dL (31.6-35.5); Mean Corpuscular Hemoglobin 30.7 pg (28.0-33.3); Mean Corpuscular Volume 92.2 fL (83.0-100.0); Mean Platelet Volume 12.1 fL (9.4-12.4); Monocytes % 8.9 %; Neutrophils # 5.6 K/mcL (1.6-8.9); Platelet Count 199 K/mcL (140-400); Red Blood Count 3.71 M/mcL (3.82-4.97); Red Cell Distribution Width 12.8 % (11.5-14.5); Segmented Neutrophils % 52.6 %
[2016-12-09 05:50] LABS: Alanine Aminotransferase 54 Units/L (0-55); Albumin 2.8 g/dL (3.5-5.0); Alkaline Phosphatase 80 Units/L (38-126); Aspartate Amino Transferase 43 Units/L (5-34); BUN/Creatinine Ratio 10 (6-26); Bilirubin,Direct 0.2 mg/dL (0.0-0.5); Bilirubin,Indirect 0.2 mg/dL (0.0-1.2); Bilirubin,Total 0.4 mg/dL (0.2-1.2); Blood Urea Nitrogen 7 mg/dL (7-20); Calcium 8.5 mg/dL (8.6-10.8); Carbon Dioxide 26 mEq/L (19-29); Chloride 108 mEq/L (98-109); Globulin 2.8 g/dL (2.4-3.5); Glucose 101 mg/dL (70-99); Osmolality,Calculated 288 (280-300); Potassium 3.4 mEq/L (3.5-4.5); Sodium 140 mEq/L (136-145); Total Protein 5.6 g/dL (6.0-8.3); eGFR For African Americans > 60 (> 60); eGFR For Non-African Americans > 60 (> 60)
[2016-12-09] MEDS: Pregabalin 75 MG CAPSULE PO SCH (08:34)
[2016-12-09] MEDS ORDERED: Pantoprazole 40 MG VIAL IVP SCH (09:00)
--- NOTE | 2016-12-09 14:38 | Discharge Summary ---
Date of Encounter: 12/09/16 Time of Encounter: 14:34 - Discharge Diagnosis (1) Acute cholecystitis Priority: Primary Status: Resolved (2) Leukocytosis Priority: Secondary Status: Resolved Qualifiers: Leukocytosis type: unspecified Qualified Code(s): D72.829 - Elevated white blood cell count, unspecified (3) Nausea & vomiting Priority: Secondary Status: Resolved Qualifiers: Vomiting type: unspecified Vomiting Intractability: non-intractable Qualified Code(s): R11.2 - Nausea with vomiting, unspecified - Discharge Medications Prescriptions: OxyCODONE/APAP 5/325 [Percocet 5/325 MG] 1 each PO Q4HR PRN #30 tablet PRN Reason: Pain Ibuprofen [Motrin] 800 mg PO Q8HR #50 tablet Docusate [Colace] 100 mg PO BID #30 capsule Home Medications: Pregabalin [Lyrica] 300 mg PO BID 12/07/16 [History] Ondansetron ODT [Zofran ODT] 4 mg PO Q4H PRN 12/08/16 [History] Docusate [Colace] 100 mg PO BID #30 capsule 12/09/16 [Rx] Ibuprofen [Motrin] 800 mg PO Q8HR #50 tablet 12/09/16 [Rx] OxyCODONE/APAP 5/325 [Percocet 5/325 MG] 1 each PO Q4HR PRN #30 tablet 12/09/16 [Rx] Suboxone 8mg-2mg Tab 1 tab PO BID #0 12/09/16 [Rx] Allergies/Adverse Reactions: Allergies Sulfa (Sulfonamide Antibiotics) Allergy (Verified 04/24/15 23:06) Swelling of Lip/Tongue/Throat Cyclobenzaprine [From Flexeril] Adverse Reaction (Verified 04/24/15 23:06) Shakiness tramadol [From Ultram] Adverse Reaction (Verified 04/24/15 23:06) Irritable General Surgery Exam Initial Vital Signs Temp Pulse Resp BP Pulse Ox 98.1 F 97 18 157/97 98 12/07/16 13:46 12/07/16 13:46 12/07/16 13:46 12/07/16 13:46 12/07/16 13:46 - General physical appearance well developed, well nourished, no distress - Eyes normal ocular movement - ENT normal mucosa, atraumatic, normocephalic - Neck trachea midline - Respiratory normal respiratory effort - Cardiovascular Cardiovascular exam: Present: RRR - Abdomen Abdomen general surgery: Present: bowel sounds present, soft, tender (expected post-operative tenderness) - Incision Incision: Present: clean and dry, intact - Integumentary Integumentary general surgery: Present: warm and dry - Neurologic Present: CN 2-12 grossly intact - Psychiatric Psychiatric general surgery: Present: appropriate, oriented to person, oriented to place, oriented to time, speech is normal, memory intact Date of admission: 12/07/16 20:05 Primary care physician: Bhavani Sneed Discharging clinician: Lin Enriquez (Precious Maddox) Anticipated date of discharge: 12/09/16 - Patient Status Disposition: Home, Self-Care Condition: Good - Discharge Instructions Instructions: Laparoscopic Cholecystectomy (DC) Follow Up With: Bhavani Sneed [Primary Care Provider] - Lin Enriquez MD [Partnered Physician] - (or Jennifer Maddox in 2 weeks for post op check) Phoebe Maddox CNP [Advanced Practice Nurse] - 12/23/16 9:00 am (surgery follow-up) Forms: Work/School Release Additional Instructions: No lifting more than 20 pounds for 6 weeks. Okay to take a shower in 12/09/16 No tub baths or pools for 1 week. Okay to ride in the car wearing a seatbelt and climb steps. No driving until off narcotics for 24 hours and able to react safely Remove Steri-Strips in 1 week Do not take pain medicine/narcotics on an empty stomach it will likely cause nausea and possibly vomiting. If pain medication is too strong okay to break in half - Diet and Activity Activity: other (See additional instructions above) Diet: advance to your usual diet - Hospital Course Hospital course: Ms. New is a 31 year old female presented to the hospital with complaints of abdominal pain with associated nausea and vomiting. She was found to have symptomatic cholelithiasis as well as acute cholecystitis. She was started on IV antibiotics and taken to the operating room for a laparoscopic cholecystectomy. She is POD #1 from cholecystectomy and she states that she feels much better. She is tolerating a diet without nausea or vomiting. Her vital signs are stable and she is afebrile. She is voiding and ambulating without difficulty. Her WBC count has returned to normal. We will begin discharge planning and plan for outpatient follow-up in the next 10-14 days. - Time Spent with Patient Total time spent providing and/or coordinating discharge services: Less than 30 minutes Labs on day of discharge: Labs from last 24 hours 12/09/16 12/09/16 12/08/16 04:41 04:41 06:01 WBC 10.6 RBC 3.71 L Hgb 11.4 L Hct 34.2 L MCV 92.2 MCH 30.7 MCHC 33.3 RDW 12.8 Plt Count 199 MPV 12.1 Immature Gran % 0.3 Seg Neutrophils % 52.6 Lymphocytes % 36.0 Monocytes % 8.9 Eosinophils % 1.5 Basophils % 0.7 Neutrophils # 5.6 Lymphocytes # 3.8 Monocytes # 1.0 Eosinophils # 0.2 Basophils # 0.1 Sodium 140 Potassium 3.4 L Chloride 108 Carbon Dioxide 26 BUN 7 Creatinine 0.69 Est GFR ( Amer) > 60 Est GFR (Non-Af Amer) > 60 BUN/Creatinine Ratio 10 Glucose 101 H POC Glucose 127 H Calculated Osmolality 288 Calcium 8.5 L Total Bilirubin 0.4 Direct Bilirubin 0.2 Indirect Bilirubin 0.2 AST 43 H ALT 54 Alkaline Phosphatase 80 Serum Total Protein 5.6 L Albumin 2.8 L Globulin 2.8 Albumin/Globulin Ratio 1.0 L 12/07/16 23:32 WBC RBC Hgb Hct MCV MCH MCHC RDW Plt Count MPV Immature Gran % Seg Neutrophils % Lymphocytes % Monocytes % Eosinophils % Basophils % Neutrophils # Lymphocytes # Monocytes # Eosinophils # Basophils # Sodium Potassium Chloride Carbon Dioxide BUN Creatinine Est GFR ( Amer) Est GFR (Non-Af Amer) BUN/Creatinine Ratio Glucose POC Glucose 124 H Calculated Osmolality Calcium Total Bilirubin Direct Bilirubin Indirect Bilirubin AST ALT Alkaline Phosphatase Serum Total Protein Albumin Globulin Albumin/Globulin Ratio - Attending Attestation I examined this patient and my medical decision-making was reviewed with the [facility] PAIR/PA/Advanced Practice Nurse/Resident Physician. I agree with the documented findings, disposition and treatment plan as described except to the extent set forth below.
[2016-12-09 14:53] VITALS: BP 109/68
== END 2016-12-09 15:20 | disposition home or self-care (01) ==
LOC: 3ANU 13:27 → EMEROO 13:27 → 3ANU 21:10
PROVIDERS: ADMIT Surgery; ATTEND Surgery